=== PATIENT | female | born 1965 | race Caucasian/White ===

== ENCOUNTER 2016-10-23 09:08 | Emergency (ER) | payer BC ==
[~2016-10-23] VITALS: Ht 154.9 cm; Wt 89.7 kg
[2016-10-23 10:01] LABS: HEMATOCRIT 42.1 % (36.0-46.0); MCH 30.7 PG (29.0-34.0); MCHC 34.7 G/DL (30.0-36.0); MCV 88.6 FL (83-99); MEAN PLAT.VOLUME 8.9 uM^3 (9.5-12.4); PLATELET COUNT 255 K/uL (156-360); RBC DIS.WIDTH-CV 12.7 % (11.8-14.6); RBC DIS.WIDTH-SD 41.2 % (39-53); RED BLOOD COUNT 4.75 M/uL (3.80-5.20); WHITE BLOOD COUNT 6.8 K/uL (4.1-10.2)
[2016-10-23 10:09] LABS: ADD MIUA? YES; BILIRUBIN NEGATIVE; BLOOD NEGATIVE; COLOR YELLOW ((YELLOW)); GLUCOSE (STRIP) NEGATIVE; KETONES NEGATIVE; LEUKOCYTES TRACE; NITRITE NEGATIVE; PROTEIN (STRIP) NEGATIVE; SPECIFIC GRAVITY 1.011 (1.000-1.030); UROBILINOGEN 0.2 MG/DL (0.2-1.0)
[2016-10-23 10:14] LABS: BACTERIA RARE /HPF; EPITHELIAL CELLS RARE /HPF; MUCUS NONE SEEN /LPF; RED BLOOD CELLS 0-5 /HPF (0-5); UCUL ADDED? NO; WHITE BLOOD CELLS 0-5 /HPF (0-5)
[2016-10-23 10:16] LABS: CHLORIDE 108 mEq/L (99-109); POTASSIUM 4.3 mEq/L (3.7-5.4); SODIUM 140 mEq/L (136-147)
[2016-10-23 10:18] LABS: GLUCOSE 85 mg/dL (70-99)
[2016-10-23 10:19] LABS: ANION GAP 11 MEQ/L (2-14)
[2016-10-23 10:20] LABS: TOTAL BILIRUBIN 0.4 mg/dL (0.0-1.0)
[2016-10-23 10:21] LABS: ALKALINE PHOSPHATASE 120 IU/L (3-129)
[2016-10-23 10:22] LABS: GFR ESTIMATE (CALCULATED) > 59 mL/min/
[2016-10-23 10:23] LABS: UREA NITROGEN (BUN) 11 mg/dL (9-23)
[2016-10-23 10:24] LABS: QUANTITATIVE HCG 6.6 MIU/ML
[2016-10-23] MEDS ORDERED: AVELOX400 MG PO (11:49)
[2016-10-23] MEDS ORDERED: ZOFRAN ODT4 MG PO (11:49)
[2016-10-23] MEDS ORDERED: PERCOCET 5/31 TABLET PO (11:49)
[2016-10-23 12:38] VITALS: BP 165/103
== END 2016-10-23 12:39 | disposition home or self-care (01) ==
LOC: EME 09:08
DX: K57.32 Diverticulitis of large intestine without perforation or abscess without bleeding (principal); K58.9 Irritable bowel syndrome, unspecified; Z90.49 Acquired absence of other specified parts of digestive tract
CPT/HCPCS: 74177; 80053; 81003; 84702; 85027; 99281; 99283; J1885; J2405; J3010; J7030

== ENCOUNTER → 2017-01-06 | Outpatient (CLI) | payer BC ==
[~2017-01-06] MED LIST: AVELOX400 MG PO; PERCOCET 5/31 TABLET PO; ZOFRAN ODT4 MG PO
== END | disposition home or self-care (01) ==
LOC: CDC 14:15
DX: Z01.810 Encounter for preprocedural cardiovascular examination (principal); K57.32 Diverticulitis of large intestine without perforation or abscess without bleeding
CPT/HCPCS: 93000